=== PATIENT | female | born 1940 | race Asian ===

== ENCOUNTER 2021-04-25 11:17 | Emergency (ER) | payer OTHER ==
[2021-04-25 11:27] VITALS: TEMP 98.2; BMI 16.0
[2021-04-25] MEDS ORDERED: MECLIZINE HCL 25 MG TABLET (FP) PO ONE (12:25)
[2021-04-25] MEDS ORDERED: MECLIZINE HCL 25 MG TABLET (FP) ONE (12:28)
[2021-04-25 12:45] LABS: BASO % 1.3 % (0-2.0); EOS % 0.7 % (0-4.5); HEMATOCRIT 36.7 % (32.4-45.2); HEMOGLOBIN 12.2 GM/dL (10.7-15.3); MCH 28.4 pg (25.7-33.7); MCHC 33.1 g/dl (32.0-36.0); MEAN CELL VOLUME 85.9 fl (80-96); MEAN PLT VOLUME 8.2 fl (7.5-11.1); MONO % 9.4 % (3.8-10.2); NEUT % 68.6 % (42.8-82.8); PLATELET COUNT 257 10^3/uL (134-434); RBC 4.27 M/mm3 (3.60-5.2); RDW 13.8 % (11.6-15.6); WHITE BLOOD COUNT 4.4 K/mm3 (4.0-10.0)
[2021-04-25 13:19] LABS: CHLORIDE 112 mmol/L (98-107); SODIUM 144 mmol/L (136-145)
[2021-04-25 13:20] LABS: ANION GAP 4 MMOL/L (8-16); CO2 28 mmol/L (21-32)
[2021-04-25 13:21] LABS: BLOOD UREA NITROGEN 23.4 mg/dL (7-18); CALCIUM 9.7 mg/dL (8.5-10.1)
[2021-04-25 13:22] LABS: ALBUMIN 3.4 g/dl (3.4-5.0); GLUCOSE,RANDOM 74 mg/dL (74-106)
[2021-04-25 13:25] LABS: SGOT/AST 24 U/L (15-37); SGPT/ALT 29 U/L (13-61)
[2021-04-25 13:26] LABS: BILIRUBIN,TOTAL 0.5 mg/dL (0.2-1); TOT PROT 6.6 g/dl (6.4-8.2)
[2021-04-25 13:28] LABS: ALK PHOS 73 U/L (45-117)
[2021-04-25 14:01] VITALS: BP 138/68; PULSE 78
== END 2021-04-25 14:01 | disposition home or self-care (01) ==
LOC: JER 11:17
DX: R42 Dizziness and giddiness (principal)
CPT/HCPCS: 36415; 71045-TC-FY; 80053; 84443; 84484; 85025; 93005; 93010; 99285-25; C9803; U0003; U0005

== ENCOUNTER 2021-06-18 20:18 | Emergency (ER) | payer OTHER ==
[2021-06-18 20:25] VITALS: TEMP 97.8; BMI 23.2
[2021-06-18 21:14] VITALS: BP 134/90; PULSE 69
[2021-06-18 21:36] LABS: BASO % 0.8 % (0-2.0); HEMOGLOBIN 12.5 GM/dL (10.7-15.3); LYMPH % 11.5 % (8-40); MCH 27.8 pg (25.7-33.7); MCHC 32.8 g/dl (32.0-36.0); MEAN CELL VOLUME 84.6 fl (80-96); MEAN PLT VOLUME 7.7 fl (7.5-11.1); MONO % 5.4 % (3.8-10.2); NEUT % 81.3 % (42.8-82.8); PLATELET COUNT 243 10^3/uL (134-434); RBC 4.49 M/mm3 (3.60-5.2); RDW 13.7 % (11.6-15.6); WHITE BLOOD COUNT 6.6 K/mm3 (4.0-10.0)
[2021-06-18 21:45] LABS: EPI CELLS 12 /uL (0-25.1); HYALINE CASTS 0 /uL (0-3.1); PH,URINE 5.5 (5.0-8.0); URINE APPEARANCE CLEAR; URINE BACTERIA 1888 /uL (0-1359); URINE BILIRUBIN NEGATIVE (NEGATIVE); URINE COLOR YELLOW; URINE GLUCOSE (UA) NEGATIVE (NEGATIVE); URINE KETONE NEGATIVE (NEGATIVE); URINE LEUK ESTERASE 1+ (NEGATIVE); URINE NITRITE POSITIVE (NEGATIVE); URINE PROTEIN TRACE (NEGATIVE); URINE RBC 4 /uL (0-23.9); URINE UROBILINOGEN 0.2 mg/dL (0.2-1.0); URINE WBC 58 /uL (0-25.8)
[2021-06-18] MEDS ORDERED: CEFTRIAXONE 1 GM in DEXTROSE 5%-WATER - 100 ML IVPB ONE (21:54)
[2021-06-18 22:10] LABS: ALBUMIN 3.7 g/dl (3.4-5.0); BLOOD UREA NITROGEN 15.1 mg/dL (7-18); CALCIUM 9.8 mg/dL (8.5-10.1)
[2021-06-18 22:13] LABS: CREATININE 0.8 mg/dL (0.55-1.3)
[2021-06-18 22:15] LABS: BILIRUBIN,TOTAL 0.5 mg/dL (0.2-1); TOT PROT 6.9 g/dl (6.4-8.2)
[2021-06-18] MEDS ORDERED: CEPHALEXIN MONOHYDRATE 500 MG CAPSULE (UD) PO ONE (22:48)
[2021-06-18] MEDS ORDERED: CEPHALEXIN MONOHYDRATE 500 MG CAPSULE (UD) ONE (22:53)
== END 2021-06-18 23:36 | disposition home or self-care (01) ==
LOC: JER 20:18
DX: N39.0 Urinary tract infection, site not specified (principal)
CPT/HCPCS: 36415; 80053; 81003; 85025; 87086; 87186; 99283-25

== ENCOUNTER → 2021-07-14 | Day surgery (SDC) | payer OTHER ==
[2021-07-12 10:35] VITALS: BMI 23.2
[~2021-07-14] MED LIST: ACETAMINOPHEN 325 MG TABLET (FP) ONE; ACETAMINOPHEN 325 MG TABLET (FP) PO ONE; MIDAZOLAM HCL 2 MG/2 ML SINGLE DOSE VIAL IVPUSH ONE
[2021-07-14 08:59] LABS: PROTHROMBIN TIME (PATIENT) 11.5 SEC (9.7-13.0)
[2021-07-14 09:19] VITALS: TEMP 98.7
[2021-07-14 11:18] VITALS: PULSE 65
[2021-07-14 12:18] VITALS: BP 127/77
== END | disposition home or self-care (01) ==
LOC: JRADIR 05:11
PROVIDERS: ATTEND Urology
PROC: 0T9B30Z Drainage of Bladder with Drainage Device, Percutaneous Approach (ICD-10-PCS; principal; 2021-07-14)
DX: R33.9 Retention of urine, unspecified (principal)
CPT/HCPCS: 36415; 51102; 85610

== ENCOUNTER 2021-08-18 05:41 | Emergency (ER) | payer OTHER ==
[2021-08-18 05:55] VITALS: TEMP 98.1; BMI 23.2
[2021-08-18 08:22] LABS: HEMATOCRIT 38.6 % (32.4-45.2); HEMOGLOBIN 12.5 GM/dL (10.7-15.3); MCH 27.8 pg (25.7-33.7); MCHC 32.4 g/dl (32.0-36.0); MEAN CELL VOLUME 85.7 fl (80-96); MEAN PLT VOLUME 7.6 fl (7.5-11.1); PLATELET COUNT 249 10^3/uL (134-434); RBC 4.51 M/mm3 (3.60-5.2); RDW 13.4 % (11.6-15.6); WHITE BLOOD COUNT 7.4 K/mm3 (4.0-10.0)
[2021-08-18 08:40] LABS: CALCIUM 9.5 mg/dL (8.5-10.1)
[2021-08-18 08:41] LABS: ALBUMIN 3.4 g/dl (3.4-5.0); BLOOD UREA NITROGEN 20.7 mg/dL (7-18)
[2021-08-18 08:44] LABS: CREATININE 0.9 mg/dL (0.55-1.3)
[2021-08-18 08:45] LABS: BILIRUBIN,TOTAL 1.1 mg/dL (0.2-1); TOT PROT 6.9 g/dl (6.4-8.2)
[2021-08-18 10:56] LABS: INR 1.11 (0.83-1.09); PROTHROMBIN TIME (PATIENT) 12.8 SEC (9.7-13.0)
[2021-08-18] MEDS ORDERED: MIDAZOLAM HCL 2 MG/2 ML SINGLE DOSE VIAL IVPUSH ONE (16:24)
[2021-08-18 18:12] LABS: EPI CELLS 36 /uL (0-25.1); HYALINE CASTS 11 /uL (0-3.1); URINE APPEARANCE TURBID; URINE BACTERIA >9,000 /uL (0-1359); URINE BILIRUBIN NEGATIVE (NEGATIVE); URINE COLOR YELLOW; URINE GLUCOSE (UA) NEGATIVE (NEGATIVE); URINE KETONE TRACE (NEGATIVE); URINE LEUK ESTERASE 3+ (NEGATIVE); URINE NITRITE NEGATIVE (NEGATIVE); URINE PROTEIN 2+ (NEGATIVE); URINE RBC 1758 /uL (0-23.9); URINE UROBILINOGEN 0.2 mg/dL (0.2-1.0); URINE WBC 14655 /uL (0-25.8)
[2021-08-18] MEDS ORDERED: CEPHALEXIN MONOHYDRATE 500 MG CAPSULE (UD) PO ONE (18:25)
[2021-08-18] MEDS ORDERED: CEPHALEXIN MONOHYDRATE 500 MG CAPSULE (UD) ONE (18:34)
[2021-08-18 18:37] VITALS: BP 145/68; PULSE 78
== END 2021-08-18 18:47 | disposition home or self-care (01) ==
LOC: JER 05:41
PROC: 3E033NZ Introduction of Analgesics, Hypnotics, Sedatives into Peripheral Vein, Percutaneous Approach (ICD-10-PCS; principal; 2021-08-18)
PROC: 3E033NZ Introduction of Analgesics, Hypnotics, Sedatives into Peripheral Vein, Percutaneous Approach (ICD-10-PCS; 2021-08-18)
DX: T83.010A Breakdown (mechanical) of cystostomy catheter, initial encounter (principal)
CPT/HCPCS: 36415; 51102; 75984-FY; 80053; 81003; 85027; 85610; 87086; 87186; 99284-25; C1729; C1769

== ENCOUNTER → 2021-10-19 | Day surgery (SDC) | payer OTHER | END | disposition home or self-care (01) | LOC: JRADIR 10:29 | PROVIDERS: ATTEND Radiology Diagnostic Radiology | PROC: 0T2BX0Z Change Drainage Device in Bladder, External Approach (ICD-10-PCS; principal; 2021-10-19) | DX: Z43.6 Encounter for attention to other artificial openings of urinary tract (principal) | CPT/HCPCS: 51710; C2627; 75984-FY ==